=== PATIENT | female | born 1990 | race Caucasian/White ===

== ENCOUNTER 2018-11-06 13:49 | Emergency (ER) | payer MEDICAID ==
[~2018-11-06] VITALS: Ht 165.1 cm; Wt 104.3 kg
[2018-11-06 14:00] VITALS: BP 135/75
== END 2018-11-06 15:52 | disposition home or self-care (01) ==
LOC: ER 13:51
DX: R22.41 Localized swelling, mass and lump, right lower limb (principal); F32.9 Major depressive disorder, single episode, unspecified; F41.9 Anxiety disorder, unspecified; F15.20 Other stimulant dependence, uncomplicated; Z90.710 Acquired absence of both cervix and uterus; Z98.890 Other specified postprocedural states
CPT/HCPCS: 36415; 87806

== ENCOUNTER 2018-11-26 23:27 | Emergency (ER) | payer MEDICAID ==
[~2018-11-26] VITALS: Ht 165.1 cm; Wt 99.8 kg
[2018-11-27] MEDS ORDERED: CLINDAMYCIN HCL 150 MG CAPSULE PO ONE ×2 (00:14→00:30)
--- NOTE | 2018-11-27 00:37 | NUR ---
Patient discharged to home in stable condition. Written and verbal after care instructions given. Patient verbalizes understanding of instruction.
[2018-11-27 00:38] VITALS: BP 135/85
== END 2018-11-27 00:40 | disposition home or self-care (01) ==
LOC: ER 23:33
DX: L03.115 Cellulitis of right lower limb (principal); L73.9 Follicular disorder, unspecified; F32.9 Major depressive disorder, single episode, unspecified; F41.9 Anxiety disorder, unspecified; Z90.710 Acquired absence of both cervix and uterus; Z98.890 Other specified postprocedural states

== ENCOUNTER 2019-03-04 00:47 | Emergency (ER) | payer MEDICAID ==
[~2019-03-04] VITALS: Ht 165.1 cm; Wt 104.3 kg
--- NOTE | 2019-03-04 01:02 | NUR ---
BIBS TO ER BED BED 6. AAOX4. NO RESP DISTRESS NOTED. AMBULATORY. C/O WATERY DIARRHEA. PT STATES THAT SHE HAS ABOUT 12EPISODES PER DAY, EVEN WHEN SHE IS SLEEPING. PT REPORTS NAUSEA BUT NOT VOMMITING. PT REPORTS THAT SHE IS BLOATED AND BURPING ALOT. MD IS AT BEDSIDE FOR EVAL. AWAITING ORDERS
[2019-03-04 01:28] LABS: BASOPHILS % (AUTO) 0.3 % (0.0-2.0); EOSINOPHILS % (AUTO) 1.2 % (0.0-6.0); HEMATOCRIT 37 % (33-45); HEMOGLOBIN 12.2 g/dL (11.5-14.8); LYMPHOCYTES # (AUTO) 1.9 /CMM (0.8-4.8); LYMPHOCYTES % (AUTO) 29.2 % (20.0-44.0); MEAN CORPUSCULAR HGB CONC 33 g/dl (31.0-36.0); MEAN CORPUSCULAR VOLUME 79 fL (82-100); MONOCYTES # (AUTO) 0.7 /CMM (0.1-1.30); MONOCYTES % (AUTO) 10.1 % (2.0-12.0); NEUTROPHILS # (AUTO) 3.8 /CMM (1.8-8.9); NEUTROPHILS % (AUTO) 59.2 % (43.0-81.0); PLATELET COUNT (AUTO) 417 /CMM (150-450); RED BLOOD CELL COUNT(AUTO) 4.66 MIL/uL (4.0-5.2); WHITE BLOOD COUNT (AUTO) 6.4 K/uL (4.3-11.0)
[2019-03-04] MEDS ORDERED: IV NS 0.9% 1,000 ML BAG IV ONE (01:30)
[2019-03-04 01:35] LABS: CALCIUM, SERUM 8.9 mg/dL (8.5-10.1); CREATININE 0.9 mg/dL (0.6-1.3); POTASSIUM 3.3 mmol/L (3.5-5.1)
[2019-03-04 01:41] LABS: ALBUMIN 3.4 g/dL (3.4-5.0); BILIRUBIN,DIRECT 0.1 mg/dL (0.0-0.2); BILIRUBIN,TOTAL 0.7 mg/dL (0.2-1.0); TOTAL PROTEIN, SERUM 8.5 g/dL (6.4-8.2)
[2019-03-04 02:26] LABS: APPEARANCE,URINE SL CLOUDY (CLEAR); BILIRUBIN,URINE NEGATIVE (NEGATIVE); BLOOD, URINE NEGATIVE Ery/uL (NEGATIVE); COLOR,URINE YELLOW (YELLOW); KETONES,URINE TRACE (NEGATIVE); LEUKOCYTE ESTERASE ,URINE NEGATIVE (NEGATIVE); NITRITE, URINE NEGATIVE (NEGATIVE); PROTEIN,URINE TRACE mg/dl (NEGATIVE); UGLUCOSE NEGATIVE (NEGATIVE); UROBILINOGEN,URINE 0.2 EU/dL (0.2)
[2019-03-04 02:37] LABS: BACTERIA,URINE Moderate /HPF (None Seen); CALCIUM OXALATE CRYSTALS,UR Many /HPF (None Seen); MUCUS,URINE Moderate /LPF (None Seen); RBC,URINE 0-2 /HPF (0-2); SQUAMOUS EPITHELIAL CELL,UR Many /HPF (None Seen); WBC,URINE 0-2 /HPF (0-3)
[2019-03-04] MEDS ORDERED: POTASSIUM CHLORIDE 20 MEQ TAB.PRT.SR PO ONE ×2 (03:30→03:35)
--- NOTE | 2019-03-04 03:45 | NUR ---
Patient discharged to home in stable condition. Written and verbal after care instructions given. Patient verbalizes understanding of instruction.IV removed. Catheter intact and site benign. Pressure and 4x4 applied to site. No bleeding noted. Pt ambulatory with a steady gait
[2019-03-04 03:46] VITALS: BP 131/74
== END 2019-03-04 03:46 | disposition home or self-care (01) ==
LOC: ER 00:48
DX: R19.7 Diarrhea, unspecified (principal); R10.84 Generalized abdominal pain; R11.0 Nausea; F32.9 Major depressive disorder, single episode, unspecified; F41.9 Anxiety disorder, unspecified; F15.10 Other stimulant abuse, uncomplicated; Z90.710 Acquired absence of both cervix and uterus; Z98.890 Other specified postprocedural states; Z60.2 Problems related to living alone
CPT/HCPCS: 36415; 80048; 80076; 81001; 83690; 84703; 85025; 87086; 96360; 99283; J7030; 81000-TC

== ENCOUNTER 2019-04-15 18:09 | Emergency (ER) | payer MEDICAID ==
[~2019-04-15] VITALS: Ht 165.1 cm; Wt 104.3 kg
[2019-04-15 18:17] VITALS: BP 119/82
--- NOTE | 2019-04-15 19:17 | NUR ---
PT REFUSED HIV TEST SHE HAD TO GO HOME. PT IS ON A CURFEW. PT DID NOT WANT HER LAST VSS TAKEN. Patient discharged to home in stable condition. Written and verbal after care instructions given. Patient verbalizes understanding of instruction AND RX. PT AMBULATED OUT WITH A STEADY GAIT.
== END 2019-04-15 19:17 | disposition home or self-care (01) ==
LOC: ER 18:11
DX: S30.860A Insect bite (nonvenomous) of lower back and pelvis, initial encounter (principal); F32.9 Major depressive disorder, single episode, unspecified; F41.9 Anxiety disorder, unspecified; Z90.710 Acquired absence of both cervix and uterus; Z98.890 Other specified postprocedural states; Z60.2 Problems related to living alone; W57.XXXA Bitten or stung by nonvenomous insect and other nonvenomous arthropods, initial encounter; Y93.89 Activity, other specified; Y92.89 Other specified places as the place of occurrence of the external cause; Y99.8 Other external cause status
CPT/HCPCS: 87491; 87591

== ENCOUNTER 2019-05-24 08:10 | Emergency (ER) | payer MEDICAID ==
[~2019-05-24] VITALS: Ht 165.1 cm; Wt 98.4 kg
[2019-05-24 08:25] VITALS: BP 142/83
--- NOTE | 2019-05-24 09:06 | NUR ---
Patient discharged to home in stable condition. Written and verbal after care instructions given. Patient verbalizes understanding of instruction.
== END 2019-05-24 09:08 | disposition home or self-care (01) ==
LOC: ER 08:17
DX: B35.6 Tinea cruris (principal); Z90.710 Acquired absence of both cervix and uterus; Z98.890 Other specified postprocedural states; Z60.2 Problems related to living alone

== ENCOUNTER 2019-07-05 07:28 | Emergency (ER) | payer MEDICAID ==
[~2019-07-05] VITALS: Ht 170.2 cm; Wt 113.4 kg
--- NOTE | 2019-07-05 07:38 | NUR ---
CAME IN TO ER BECAUSE HER PARTNER TESTED POSITIVE FOR SYPHILIS. TO ER BED 16, HOOKED TO MONITOR, CHANGED TO HOSP GOWN, WARM BLANKET PROVIDED, AWAITING MD PATEL
--- NOTE | 2019-07-05 07:38 | NUR ---
DR LOYD AT BEDSIDE
[2019-07-05] MEDS ORDERED: PENICILLIN G BENZATHINE 2.4 MMU/4 ML ML IM ONE ×2 (08:00→08:04)
[2019-07-05 08:50] VITALS: BP 126/79
--- NOTE | 2019-07-05 09:10 | NUR ---
PATIENT WALKED OUT OF FACILITY. AWARE
== END 2019-07-05 09:26 | disposition home or self-care (01) ==
LOC: ER 07:33
DX: Z20.2 Contact with and (suspected) exposure to infections with a predominantly sexual mode of transmission (principal); F32.9 Major depressive disorder, single episode, unspecified; F41.9 Anxiety disorder, unspecified; Z98.890 Other specified postprocedural states; Z60.2 Problems related to living alone
CPT/HCPCS: 96372; 99283; A6403; J0558

== ENCOUNTER 2019-07-18 21:04 | Emergency (ER) | payer MEDICAID ==
[~2019-07-18] VITALS: Ht 165.1 cm; Wt 113.4 kg
[2019-07-18 21:04] VITALS: BP 159/99
--- NOTE | 2019-07-18 21:11 | NUR ---
PT CAME TO THE ED C/O SORE THROAT AND COBGESTION X 1 DAY. -COUGH -FEVER. PT AAOX4, RR EVEN AND UNLABORED ON W NAD NOTED. PT CONNECTED TO THE MONITOR AND POX.
--- NOTE | 2019-07-18 21:12 | NUR ---
AWAITING FOR MD PATEL
--- NOTE | 2019-07-18 22:33 | NUR ---
Patient discharged to home in stable condition. Written and verbal after care instructions given. Patient verbalizes understanding of instruction.
== END 2019-07-18 22:33 | disposition home or self-care (01) ==
LOC: ER 21:04
DX: J02.9 Acute pharyngitis, unspecified (principal); J06.9 Acute upper respiratory infection, unspecified; Z90.710 Acquired absence of both cervix and uterus; Z60.2 Problems related to living alone

== ENCOUNTER 2019-10-09 05:55 | Emergency (ER) | payer MEDICAID ==
[~2019-10-09] VITALS: Ht 165.1 cm; Wt 113.4 kg
--- NOTE | 2019-10-09 06:00 | NUR ---
CALLED FOR TRIAGE. NO ANSWER
[2019-10-09 06:30] VITALS: BP 138/95
[2019-10-09] MEDS ORDERED: CEFTRIAXONE 500 MG VIAL ONE (06:56)
[2019-10-09] MEDS ORDERED: LIDOCAINE /MPF 1% VIAL 5 ML VIAL ONE (06:56)
[2019-10-09] MEDS ORDERED: AZITHROMYCIN 250 MG TABLET ONE (06:56)
[2019-10-09] MEDS ORDERED: AZITHROMYCIN 250 MG TABLET PO ONE (07:00)
[2019-10-09] MEDS ORDERED: CEFTRIAXONE 500 MG VIAL IM ONE (07:00)
--- NOTE | 2019-10-09 07:04 | NUR ---
Patient discharged to home in stable condition. Written and verbal after care instructions given. Patient verbalizes understanding of instruction.
== END 2019-10-09 07:05 | disposition home or self-care (01) ==
LOC: ER 05:59
DX: A64 Unspecified sexually transmitted disease (principal); Z90.710 Acquired absence of both cervix and uterus; Z98.890 Other specified postprocedural states; Z60.2 Problems related to living alone
CPT/HCPCS: 96372; 99283; J0696; J3490

== ENCOUNTER 2019-10-13 17:57 | Emergency (ER) | payer MEDICAID, OTHER ==
[~2019-10-13] VITALS: Ht 165.1 cm; Wt 99.8 kg
[2019-10-13 18:03] VITALS: BP 131/59
[2019-10-13] MEDS ORDERED: PENICILLIN G BENZATHINE 2.4 MMU/4 ML ML IM ONE ×2 (18:11→18:30)
--- NOTE | 2019-10-13 18:24 | NUR ---
Patient discharged to home in stable condition. Written and verbal after care instructions given. Patient verbalizes understanding of instruction.
== END 2019-10-13 18:25 | disposition home or self-care (01) ==
LOC: ER 17:58
DX: A53.9 Syphilis, unspecified (principal); Z98.890 Other specified postprocedural states; Z60.2 Problems related to living alone
CPT/HCPCS: 96372; 99283; J0558

== ENCOUNTER 2019-10-19 05:21 | Emergency (ER) | payer OTHER ==
[~2019-10-19] VITALS: Ht 165.1 cm; Wt 113.4 kg
[2019-10-19 05:21] VITALS: BP 141/99
== END 2019-10-19 06:46 | disposition home or self-care (01) ==
LOC: ER 05:25
DX: A53.0 Latent syphilis, unspecified as early or late (principal); Z98.890 Other specified postprocedural states; Z60.2 Problems related to living alone

== ENCOUNTER 2019-12-10 03:12 | Emergency (ER) | payer MEDICAID, OTHER ==
[~2019-12-10] VITALS: Ht 165.1 cm; Wt 113.4 kg
[2019-12-10 03:26] VITALS: BP 146/86
--- NOTE | 2019-12-10 03:43 | NUR ---
PT NOT IN ROOM. PT ELOPED.
== END 2019-12-10 04:51 | disposition home or self-care (01) ==
LOC: ER 03:13
DX: Z53.21 Procedure and treatment not carried out due to patient leaving prior to being seen by health care provider (principal); L73.9 Follicular disorder, unspecified; Z98.890 Other specified postprocedural states

== ENCOUNTER 2020-02-14 03:26 | Emergency (ER) | payer MEDICAID ==
[~2020-02-14] VITALS: Ht 165.1 cm; Wt 113.4 kg
[2020-02-14 03:35] VITALS: BP 133/88
== END 2020-02-14 03:55 | disposition home or self-care (01) ==
LOC: ER 03:26
DX: L73.8 Other specified follicular disorders (principal); Z98.890 Other specified postprocedural states; Z60.2 Problems related to living alone

== ENCOUNTER 2020-05-19 10:40 | Emergency (ER) | payer MEDICAID ==
[~2020-05-19] VITALS: Ht 165.1 cm; Wt 113.4 kg
[2020-05-19 10:47] VITALS: BP 150/122
[2020-05-19] MEDS ORDERED: LOPERAMIDE HCL (2 MG CAP) 2 MG CAPSULE ONE (10:56)
[2020-05-19] MEDS ORDERED: LOPERAMIDE HCL (2 MG CAP) 2 MG CAPSULE PO ONE (11:00)
[2020-05-19] MEDS ORDERED: ONDANSETRON 4 MG TAB.RAPDIS SL ONE (11:00)
[2020-05-19] MEDS ORDERED: ONDANSETRON 4 MG TAB.RAPDIS ONE (11:02)
[2020-05-19] MEDS ORDERED: LOPE1LIQ56 PO (11:03)
[2020-05-19] MEDS ORDERED: ONDA4TAB5 PO (11:03)
== END 2020-05-19 11:20 | disposition home or self-care (01) ==
LOC: ER 10:41
DX: K52.9 Noninfective gastroenteritis and colitis, unspecified (principal); Z20.822 Contact with and (suspected) exposure to COVID-19; Z90.710 Acquired absence of both cervix and uterus; R68.83 Chills (without fever); R58 Hemorrhage, not elsewhere classified
CPT/HCPCS: 87426; 99283; C9803; Q0162

== ENCOUNTER 2020-06-23 01:51 | Emergency (ER) | payer MEDICAID, OTHER ==
[~2020-06-23] VITALS: Ht 165.1 cm; Wt 117.9 kg
[2020-06-23 01:51] VITALS: BP 173/95
[~2020-06-23 01:51] MED LIST: LOPE1LIQ56 PO; ONDA4TAB5 PO
[2020-06-23] MEDS ORDERED: DOXY100T2 PO (02:21)
[2020-06-23] MEDS ORDERED: DOXYCYCLINE HYCLATE (100 MG) 100 MG TABLET ONE (02:25)
[2020-06-23] MEDS ORDERED: DOXYCYCLINE HYCLATE (100 MG) 100 MG TABLET PO ONE (02:30)
== END 2020-06-23 02:30 | disposition home or self-care (01) ==
LOC: ER 01:53
DX: L03.113 Cellulitis of right upper limb (principal); A53.9 Syphilis, unspecified; K13.0 Diseases of lips; Z98.890 Other specified postprocedural states; Z60.2 Problems related to living alone; Z79.899 Other long term (current) drug therapy

== ENCOUNTER 2020-09-17 01:04 | Emergency (ER) | payer OTHER ==
[~2020-09-17] VITALS: Ht 165.1 cm; Wt 122.5 kg
[~2020-09-17 01:04] MED LIST changes: +DOXY100T2 PO
[2020-09-17 01:10] VITALS: BP 147/92
[2020-09-17] MEDS ORDERED: PENICILLIN G BENZATHINE 2.4 MMU/4 ML ML IM ONE ×2 (01:51→02:00)
== END 2020-09-17 01:56 | disposition home or self-care (01) ==
LOC: ER 01:06
DX: A64 Unspecified sexually transmitted disease (principal); Z90.710 Acquired absence of both cervix and uterus; Z79.899 Other long term (current) drug therapy
CPT/HCPCS: 96372; 99283; J0558

== ENCOUNTER 2020-11-28 02:42 | Emergency (ER) | payer OTHER ==
[~2020-11-28] VITALS: Ht 165.1 cm; Wt 136.1 kg
--- NOTE | 2020-11-28 03:00 | NUR ---
PATIENT BIBSELF WITH C/O "I THINK I HAVE REOCCURRING SYPHILLIS, I HAVE HAD IT FOR A YEAR". PATIENT IS A/O X 4, RR EVEN, NO SOB NOTED.
[2020-11-28 03:19] LABS: BILIRUBIN,URINE Negative (NEGATIVE); COLOR,URINE YELLOW (YELLOW); LEUKOCYTE ESTERASE ,URINE Trace (NEGATIVE); NITRITE, URINE Negative (NEGATIVE); PH,URINE 5.5 (5.0-8.0); PROTEIN,URINE Negative (NEGATIVE); UGLUCOSE Negative (NEGATIVE)
[2020-11-28] MEDS ORDERED: PENICILLIN G BENZATHINE 2.4 MMU/4 ML ML IM ONE ×2 (03:30→03:35)
[2020-11-28] MEDS ORDERED: METRONIDAZOLE 500 MG TABLET PO ONE (03:30)
[2020-11-28] MEDS ORDERED: CEFTRIAXONE 500 MG VIAL IM ONE (03:30)
[2020-11-28] MEDS ORDERED: AZITHROMYCIN 250 MG TABLET PO ONE (03:30)
[2020-11-28] MEDS ORDERED: METRONIDAZOLE 500 MG TABLET ONE (03:34)
[2020-11-28] MEDS ORDERED: AZITHROMYCIN 250 MG TABLET ONE (03:34)
[2020-11-28] MEDS ORDERED: CEFTRIAXONE 500 MG VIAL ONE ×2 (03:34→03:39)
[2020-11-28 03:35] LABS: BACTERIA,URINE None seen /HPF (None Seen); SQUAMOUS EPITHELIAL CELL,UR Moderate /HPF (None Seen); WBC,URINE 0-2 /HPF (0-3)
[2020-11-28] MEDS ORDERED: LIDOCAINE /MPF 1% VIAL 5 ML VIAL ONE ×2 (03:36→03:40)
--- NOTE | 2020-11-28 03:56 | NUR ---
Patient discharged to home in stable condition. Written and verbal after care instructions given. Patient verbalizes understanding of instruction.
[2020-11-28 04:14] VITALS: BP 130/74
[2020-11-29] MEDS ORDERED: PROPOFOL 100 ML ONE (08:19)
== END 2020-11-28 04:01 | disposition home or self-care (01) ==
LOC: ER 02:46
DX: Z20.2 Contact with and (suspected) exposure to infections with a predominantly sexual mode of transmission (principal); F10.10 Alcohol abuse, uncomplicated; Y90.9 Presence of alcohol in blood, level not specified; Z90.710 Acquired absence of both cervix and uterus; Z98.890 Other specified postprocedural states; Z79.899 Other long term (current) drug therapy
CPT/HCPCS: 81001; 96372 ×2; 99284; J0558; J0696 ×2; J3490 ×2; 36415; 86592

== ENCOUNTER 2021-01-06 01:11 | Emergency (ER) | payer OTHER ==
[~2021-01-06] VITALS: Ht 165.1 cm; Wt 113.4 kg
[2021-01-06 01:20] VITALS: BP 132/87
--- NOTE | 2021-01-06 01:48 | NUR ---
PT DID NOT WANT TO WAIT FOR DISCHARGE PAPERWORK.
== END 2021-01-06 01:48 | disposition home or self-care (01) ==
LOC: ER 01:12
DX: A53.9 Syphilis, unspecified (principal); E66.01 Morbid (severe) obesity due to excess calories; Z68.41 Body mass index [BMI] 40.0-44.9, adult; Z90.710 Acquired absence of both cervix and uterus; Z79.899 Other long term (current) drug therapy

== ENCOUNTER 2021-03-17 21:23 | Inpatient (IN) | payer OTHER ==
[~2021-03-17] VITALS: Ht 165.1 cm; Wt 127.0 kg
[2021-03-17] MEDS ORDERED: KETOROLAC TROMETHAMINE 15 MG/ML VIAL ONE (21:51)
--- NOTE | 2021-03-17 21:55 | NUR ---
URINE COLLECTED AND SENT TO LAB
[2021-03-17] MEDS ORDERED: IV NS 0.9% 1,000 ML BAG IV ONE (22:00)
[2021-03-17] MEDS ORDERED: KETOROLAC TROMETHAMINE INJ 30 MG/ML VIAL IV ONE (22:00)
[2021-03-17 22:24] LABS: BILIRUBIN,URINE SMALL (NEGATIVE); COLOR,URINE YELLOW (YELLOW); LEUKOCYTE ESTERASE ,URINE Moderate (NEGATIVE); NITRITE, URINE Positive (NEGATIVE); PH,URINE 5.5 (5.0-8.0); PROTEIN,URINE 100 mg/dl (NEGATIVE); UGLUCOSE Negative (NEGATIVE)
[2021-03-17 22:31] LABS: BACTERIA,URINE 3+ /HPF (None Seen); SQUAMOUS EPITHELIAL CELL,UR Few /HPF (None Seen); WBC,URINE 21-50 /HPF (0-3)
--- NOTE | 2021-03-17 22:41 | NUR ---
COVID ANTIGEN AND PCR SWAB COLLECTED & SENT TO LAB
[2021-03-17] MEDS ORDERED: CEFTRIAXONE 1 G in IV D5W 50 ML IV ONE (23:00)
[2021-03-17] MEDS ORDERED: CEFTRIAXONE 1GM BAG (ER ONLY) 50 ML IV ONE (23:05)
--- NOTE | 2021-03-17 23:08 | NUR ---
L FOOT #20G S/L; PATENT AND INTACT. BLOOD COLLECTED AND SENT TO LAB
[2021-03-17 23:09] LABS: BASOPHILS % (AUTO) 0.2 % (0.0-2.0); HEMATOCRIT 40 % (33-45); HEMOGLOBIN 12.7 g/dL (11.5-14.8); LYMPHOCYTES # (AUTO) 1.4 K/uL (0.8-4.8); LYMPHOCYTES % (AUTO) 5.7 % (20.0-44.0); MEAN CORPUSCULAR HGB CONC 32 g/dl (31.0-36.0); MEAN CORPUSCULAR VOLUME 84 fL (82-100); MONOCYTES # (AUTO) 2.1 K/uL (0.1-1.30); MONOCYTES % (AUTO) 8.6 % (2.0-12.0); NEUTROPHILS # (AUTO) 21.3 K/uL (1.8-8.9); NEUTROPHILS % (AUTO) 85.5 % (43.0-81.0); PLATELET COUNT (AUTO) 372 K/uL (150-450); RED BLOOD CELL COUNT(AUTO) 4.74 MIL/uL (4.0-5.2); WHITE BLOOD COUNT (AUTO) 24.9 K/uL (4.3-11.0)
[2021-03-17 23:19] LABS: CALCIUM, SERUM 8.5 mg/dL (8.5-10.1); CARBON DIOXIDE 23 mmol/L (21-32); CHLORIDE 96 mmol/L (98-107); CREATININE 0.9 mg/dL (0.6-1.3); GLUCOSE 141 mg/dL (74-106); POTASSIUM 3.3 mmol/L (3.5-5.1); SODIUM SERUM 133 mmol/L (136-145); UREA NITROGEN, BLOOD 7 mg/dL (7-18)
--- NOTE | 2021-03-17 23:22 | NUR ---
CHLAMYDIA / WET M[place] SWAB COLLECTED AND SENT TO LAB
[2021-03-17 23:25] LABS: ALANINE AMINOTRANSFERASE 22 U/L (12-78); ALBUMIN 3.2 g/dL (3.4-5.0); ALKALINE PHOSPHATASE 153 U/L (46-116); ASPARTATE AMINOTRANSFERASE 14 U/L (15-37); BILIRUBIN,DIRECT 0.2 mg/dL (0.0-0.2); BILIRUBIN,TOTAL 1.1 mg/dL (0.2-1.0); TOTAL PROTEIN, SERUM 8.3 g/dL (6.4-8.2)
--- NOTE | 2021-03-17 23:28 | NUR ---
LACTIC 2.9
[2021-03-18] MEDS ORDERED: IV LR 1000 ML 1,000 ML IV ONE
[2021-03-18] MEDS ORDERED: IV NS 0.9% 1,000 ML IV ONE (02:30)
[2021-03-18] MEDS ORDERED: ONDANSETRON HCL/PF 4 MG/2 ML VIAL IVP PRN (02:30)
--- NOTE | 2021-03-18 02:54 | NUR ---
REPORT GIVEN TO HERB GALLEGOS
[2021-03-18] MEDS ORDERED: VANCOMYCIN 2 GM in IV D5W 500 ML IV ONE (03:00)
--- NOTE | 2021-03-18 03:04 | NUR ---
PATIENT TRANSFERRED UNDER ACLS
[2021-03-18] MEDS ORDERED: VANCOMYCIN 1 GM VIAL ONE (03:29)
--- NOTE | 2021-03-18 03:30 | NUR ---
RN NOTES RECEIVED PT FROM ER, A/O X4, ABLE TO VERBALIZE NEEDS. PT ON ROOM AIR, O2 SAT IS 99%, NO SOB NOTED, NO DISTRESS NOTED. PT BP IS 83/46, IV NS 75ML/HR ORDERED STARTED, PT IS TOLERATING WELL. PT IS COOL TO TOUCH, TEMP IS 99.1. IV ACCESS ON L FOOT G#20. IV ANTIBIOTICS STARTED, WILL CONTINUE TO MONITOR PT FOR ANY CHANGES.
[2021-03-18 04:00] VITALS: BP 83/46
[2021-03-18] MEDS: PIPERACILLIN /TAZOBACTAM 3.375 G in IV D5W 50 ML IV SCH ×4 (06:13→17:00)
[2021-03-18] MEDS ORDERED: PIPERACILLIN /TAZOBACTAM 3.375 G VIAL IV ONE (06:16)
--- NOTE | 2021-03-18 07:15 | NUR ---
RN NOTES ENDORSED PT TO DAY SHIFT NURSE. PT REMAINS IN BED, A/O X4, ABLE TO VERBALIZE NEEDS. ON ROOM AIR, O2 SAT 98% AT THIS TIME. IV ANTIBIOTICS INFUSED. ALL DUE MEDS GIVEN. IV ACCESS ON L FOOT G#20 REMAINS INTACT, NO COMPLICATIONS NOTED. NO SIGNIFICANT FINDINGS UPON ALL NURSING ASSESSMENTS. ALL SAFETY MEASURES IMPLEMENTED. WILL ENDORSE TO DAY SHIFT NURSE FOR RYLEY.
--- NOTE | 2021-03-18 07:45 | NUR ---
RN OPENING NOTE PT N BED A/O X4, ABLE TO VERBALIZE NEEDS. ON ROOM AIR, O2 SAT 98% AT THIS TIME. NO COMPLAINTS OF SOB OR PAIN. IV ACCESS ON L FOOT G#20 REMAINS INTACT,. ALL SAFETY MEASURES IMPLEMENTED.
[2021-03-18] MEDS: PANTOPRAZOLE 40 MG VIAL IV SCH (09:18)
[2021-03-18 10:43] VITALS: BP 124/71
[2021-03-18] MEDS ORDERED: VANCOMYCIN 1.25 GM in IV D5W 250 ML IV SCH (13:00)
[2021-03-18] MEDS: ACETAMINOPHEN 325 MG TABLET PO PRN (15:37)
[2021-03-18 16:00] VITALS: BP 110/52
--- NOTE | 2021-03-18 18:51 | NUR ---
RN CLOSING NOTE PATIENT IS RESTING IN BED, A/O X 4 RESPONSE TO NAME. NO COMPLAINTS OF SOB. ON RA WITH O2 SAT ABOVE 95% THROUGH OUT SHIFT. ALL MEDICATIONS GIVEN ORDERED. PATIENT NEEDS MED ON SHIFT. SAFETY PROTOCOL IN PLACE, BED IN LOWEST POSITION AND LOCKED, CALL LIGHT WITHIN REACH. WILL ENDORSE TO NIGHT NURSE FOR RYLEY
--- NOTE | 2021-03-18 19:43 | NUR ---
RN OPENING NOTES RECEIVED PATIENT IN BED BUT ALERT, ORIENTED X4 AND VERBALLY RESPONSIVE. ON ROOM AIR. NO SOB, BREATHING EVEN AND UNLABORED. ABLE TO VERBALIZE HER NEEDS. IV ACCESS ON LT FOOT G#20 INTACT AND PATENT. NO C/O PAIN OR DISCOMFORT. NO ACUTE DISTRESS. ALL SAFETY MEASURE IN PLACE. BED IN LOW POSITION AND LOCKED. BOTH SIDE RAILS UP. ABLE TO USE BEDSIDE COMMODE WITH ASSIST. WILL CONTINUE TO MONITOR PT FOR ANY CHANGES.
[2021-03-18 20:00] VITALS: BP 99/46
[2021-03-19] MEDS: PIPERACILLIN /TAZOBACTAM 3.375 G in IV D5W 50 ML IV SCH ×4 (00:10→17:37)
[2021-03-19 00:17] LABS: BASOPHILS % (AUTO) 0.1 % (0.0-2.0); EOSINOPHILS % (AUTO) 0.1 % (0.0-6.0); HEMATOCRIT 32 % (33-45); HEMOGLOBIN 10.5 g/dL (11.5-14.8); LYMPHOCYTES # (AUTO) 1.5 K/uL (0.8-4.8); LYMPHOCYTES % (AUTO) 9.4 % (20.0-44.0); MEAN CORPUSCULAR HGB CONC 33 g/dl (31.0-36.0); MEAN CORPUSCULAR VOLUME 83 fL (82-100); MONOCYTES # (AUTO) 1.6 K/uL (0.1-1.30); MONOCYTES % (AUTO) 10.1 % (2.0-12.0); NEUTROPHILS # (AUTO) 13.1 K/uL (1.8-8.9); NEUTROPHILS % (AUTO) 80.3 % (43.0-81.0); PLATELET COUNT (AUTO) 306 K/uL (150-450); RED BLOOD CELL COUNT(AUTO) 3.87 MIL/uL (4.0-5.2); WHITE BLOOD COUNT (AUTO) 16.3 K/uL (4.3-11.0)
--- NOTE | 2021-03-19 00:39 | NUR ---
RN NOTES: MIDLINE INSERTED BY MIDLINE NURSE AND PT TOLERATED WELL. SCANT AMOUNT OF BLEEDING. WILL CONTINUE TO MONITOR
[2021-03-19 00:57] LABS: ALBUMIN 2.5 g/dL (3.4-5.0); BILIRUBIN,TOTAL 0.8 mg/dL (0.2-1.0); CREATININE 0.9 mg/dL (0.6-1.3); PHOSPHORUS 1.7 mg/dL (2.5-4.9); POTASSIUM 3.3 mmol/L (3.5-5.1); TOTAL PROTEIN, SERUM 7.1 g/dL (6.4-8.2)
[2021-03-19 00:59] LABS: THYROID STIMULATING HORMONE 0.404 uIU/mL (0.358-3.74)
[2021-03-19 04:00] VITALS: BP 101/82
--- NOTE | 2021-03-19 06:50 | NUR ---
RN CLOSING NOTES PATIENT IN BED SLEEPING BUT EASILY AROUSABLE ALERT, ORIENTED X4 AND VERBALLY RESPONSIVE. ON ROOM AIR, O2 SAT 99%. NO SOB, BREATHING EVEN AND UNLABORED. ABLE TO VERBALIZE HER NEEDS. IV ACCESS ON LT FOOT#20G AND MIDLINE ON ROCKY #18G INTACT AND PATENT. NO S/S OF INFILTRATIONS. ALL DUE MEDS GIVEN PER ORDER. NO C/O PAIN OR DISCOMFORT. NO ACUTE DISTRESS. ALL SAFETY MEASURE IN PLACE. BED IN LOW POSITION AND LOCKED. BOTH SIDE RAILS UP. ABLE TO USE BEDSIDE COMMODE WITH ASSIST. WILL ENDORSE TO MORNING SHIFT NURSE.
--- NOTE | 2021-03-19 07:50 | NUR ---
RN OPENING NOTE PATIENT RECEIVED IN BED, RESTING. PATIENT ON ROOM AIR WITH NO SIGNS OF LABORED BREATHING AT THIS TIME. RIGHT UA MIDLINE IN PLACE. BED LOCKED AND IN LOWEST POSITION, CALL LIGHT WITHIN REACH, 3 SIDE RAILS UP. NO SIGNS OF DISTRESS NOTED AT THIS TIME. WILL CONTINUE TO MONITOR.
[2021-03-19 08:00] VITALS: BP 101/54
[2021-03-19] MEDS: PANTOPRAZOLE 40 MG VIAL IV SCH (08:48)
[2021-03-19] MEDS ORDERED: POTASSIUM CHLORIDE 20 MEQ TAB.PRT.SR PO SCH (11:00)
[2021-03-19 12:13] LABS: CALCIUM, SERUM 8.8 mg/dL (8.5-10.1); CREATININE 0.8 mg/dL (0.6-1.3); POTASSIUM 3.2 mmol/L (3.5-5.1)
[2021-03-19] MEDS: ACETAMINOPHEN 325 MG TABLET PO PRN (15:02)
[2021-03-19] MEDS ORDERED: K PHOS NEUTRAL 250 MG TABLET PO ONE (15:30)
[2021-03-19 16:00] VITALS: BP 113/75
--- NOTE | 2021-03-19 18:58 | NUR ---
RN CLOSING NOTE PATIENT REMAINS IN BED, AWAKE, A&OX4. PATIENT ON ROOM AIR WITH NO SIGNS OF LABORED BREATHING AT THIS TIME. RIGHT UA MIDLINE IN PLACE. BED LOCKED AND IN LOWEST POSITION, CALL LIGHT WITHIN REACH, 3 SIDE RAILS UP. NO SIGNS OF DISTRESS NOTED AT THIS TIME. ALL NEEDS ATTENDED DURING SHIFT. WILL ENDORSE TO FRUIT CULLER NURSE.
--- NOTE | 2021-03-19 19:00 | NUR ---
RN NOTE RECEIVED PATIENT IN BED RESTING ALERT ORIENTED X4 VERBALLY RESPONSIVE ON ROOM AIR O2:96% ON MED SURG MONITORING,AMBULATORY WITH ASSIST,IV SITE IS ON RIGHT UPPER ARM MIDLINE INTACT PATENT,CONTIENT BOWEL/BLADDER,IMPLEMENT SAFETY MEASURE BED IN LOW POSITON AND LOCKED,CALL LIGHT WITHIN REACH CONTINUE TO MONITOR.
[2021-03-19] MEDS: MUPIROCIN OINT 2% 22 GM TUBE NS SCH (20:32)
[2021-03-20] VITALS: BP 94/54
[2021-03-20] MEDS: PIPERACILLIN /TAZOBACTAM 3.375 G in IV D5W 50 ML IV SCH ×2 (00:19→05:21)
--- NOTE | 2021-03-20 04:52 | NUR ---
RN NOTE TYLENOL 650 MG PRN GIVEN FOR HEADACHE 06/04 CONTINUE TO MONITOR
[2021-03-20] MEDS: ACETAMINOPHEN 325 MG TABLET PO PRN (04:53)
--- NOTE | 2021-03-20 05:00 | NUR ---
RN NOTE PATIENT SLEEPING COMFORTABLE NO PAIN CONTINUE TO MONITOR.
--- NOTE | 2021-03-20 06:45 | NUR ---
0645 PATIENT STATED SHE DID NOT RECEIVE FLU VACCINE THIS SEASON. REFUSED VACCINE WHEN OFFERED.
--- NOTE | 2021-03-20 06:47 | NUR ---
RN NOTE PATIENT REMAINS ON ALERT ORIENTED X4 VERBALLY RESPONSIVE ON ROOM AIR O2:97% NO SOB NOT ACUTE DISTRESS NOTED, AMBUALTORY WITH ASSIST,ALL DUE MEDS GIVEN MD ORDERED,KEPT CALL LIGHT WITHIN REACH ALL NEEDS MET ENDORSE NEXT COMING SHIFT FOR CONTINUATION OF CARE.
--- NOTE | 2021-03-20 07:25 | NUR ---
RN NOTE REPORT REC'D FROM HERB CABRREA AT BEDSIDE. PT ASLEEP BUT EASILY AROUSABLE. IN NO ACUTE DISTRESS. NO SOB. DENIES PAIN. ON RA. ROCKY MIDLINE PATENT DRESSING INTACT. SAFETY MEASURES OBSERVED. WILL CONTINUE TO MONITOR.
[2021-03-20] MEDS: PANTOPRAZOLE 40 MG VIAL IV SCH (09:25)
[2021-03-20] MEDS: MUPIROCIN OINT 2% 22 GM TUBE NS SCH ×2 (09:25→20:38)
[2021-03-20 10:44] VITALS: BP 103/72
[2021-03-20 16:00] VITALS: BP 103/72
--- NOTE | 2021-03-20 16:04 | NUR ---
RN NOTE LAB CAME FOR BLOOD DRAW. TRIED TO OBTAIN BLOOD SAMPLE TWICE BUT UNABLE. PER TECH HE'LL SOMEONE TO TRY AGAIN. PT WAS HESITANT AT FIRST BUT LATER SHE AGREED TO IT.
[2021-03-20] MEDS ORDERED: CEPHALEXIN MONOHYDRATE 500 MG CAPSULE PO SCH (18:00)
[2021-03-20] MEDS: LEVOFLOXACIN (250MG) 250 MG TABLET PO SCH (18:51)
--- NOTE | 2021-03-20 19:26 | NUR ---
RN OPENING NOTES RECEIVED PT IN BED, ASLEEP, AWAKENS TO VERBAL STIMULI. AOx4, ABLE TO MAKE NEEDS KNOWN. ON RA AND TOLERATING WELL. NO S/SX OF RESPIRATORY DISTRESS NOTED. IV ACCESS IN ROCKY MIDLINE. IV ACCESS IS INTACT, PATENT, AND FLUSHING WELL. SAFETY PRECAUTIONS IN PLACE: BED IN LOWEST, LOCKED POSITION, SIDERAILS UPx2, AND BRAKES ON. TABLE AND CALL LIGHT WITHIN REACH. WILL CONTINUE TO MONITOR.
--- NOTE | 2021-03-20 19:27 | NUR ---
RN NOTE PT ASLEEP. NO SOB. BREATHING UNLABORED. DUE MEDS WERE GIVEN SCHEDULED. SAFETY MEASURES IN PLACE. CALL LIGHT PLACED WITHIN REACH. PT LEFT UNDISTURBED. RYLEY ENDORSED TO RICKY ESTEVEZ.
[2021-03-21] VITALS: BP 105/75
--- NOTE | 2021-03-21 06:46 | NUR ---
RN CLOSING NOTES PT IN BED, ASLEEP, AWAKENS TO VERBAL STIMULI. AOx4, ABLE TO MAKE NEEDS KNOWN. ON RA AND TOLERATING WELL. NO SOB NOTED. NO S/SX OF RESPIRATORY DISTRESS NOTED. IV ACCESS IN ROCKY MIDLINE. IV ACCESS IS INTACT, PATENT, AND FLUSHING WELL. ALL NEEDS MET. PT KEPT CLEAN AND DRY. SAFETY PRECAUTIONS IN PLACE: BED IN LOWEST, LOCKED POSITION, SIDERAILS UPx2, AND BRAKES ON. TABLE AND CALL LIGHT WITHIN REACH. WILL ENDORSE TO ONCOMING SHIFT FOR RYLEY.
--- NOTE | 2021-03-21 07:51 | NUR ---
per [facility] covid negative
[2021-03-21 08:00] VITALS: BP 108/58
[2021-03-21] MEDS: PANTOPRAZOLE 40 MG TABLET.DR PO SCH (08:08)
[2021-03-21] MEDS: MUPIROCIN OINT 2% 22 GM TUBE NS SCH ×2 (08:11→21:30)
--- NOTE | 2021-03-21 09:42 | NUR ---
RN NOTE RECEIVED PT AWAKE IN BED, ALERT AND VERBALLY RESPONSIVE. CONTINUES IN ROOM AIR, NOT IN RESPIRATORY DISTRESS. NO COMPLAINTS OF PAIN AND DISCOMOFRT. ROCKY MIDLINE IN PLACE AND PATENT. WILL CONTINUE TO MONITOR. ALL SAFETY MEASURES FOLLOWED.
--- NOTE | 2021-03-21 15:14 | NUR ---
PATIENT REFUSED TO BE STICK,UNABLE TO GET BLOOD FROM MIDLINE.DR. NOLAN NOTIFIED.
[2021-03-21 16:00] VITALS: BP 90/64
[2021-03-21] MEDS: LEVOFLOXACIN (250MG) 250 MG TABLET PO SCH (18:29)
[2021-03-21 20:00] VITALS: BP 132/72
--- NOTE | 2021-03-21 20:00 | NUR ---
MS RN NOTES RECEIVED FROM RAKAN VIA WHEELCHAIR,ALERT,ORIENTEDX4,AMBULATORY,CO COMPLAINTS THRU OUT SHIFT,SLEEP WELL ,POSSIBLE DISCHARGE TODAY.NO DISTRESS.
[2021-03-22 07:49] LABS: BASOPHILS # (AUTO) 0.1 K/uL (0.0-0.2); BASOPHILS % (AUTO) 1.1 % (0.0-2.0); HEMATOCRIT 35 % (33-45); LYMPHOCYTES % (AUTO) 25.5 % (20.0-44.0); MEAN CORPUSCULAR HGB CONC 34 g/dl (31.0-36.0); MEAN CORPUSCULAR VOLUME 81 fL (82-100); MONOCYTES # (AUTO) 0.8 K/uL (0.1-1.30); MONOCYTES % (AUTO) 7.2 % (2.0-12.0); NEUTROPHILS # (AUTO) 7.7 K/uL (1.8-8.9); NEUTROPHILS % (AUTO) 65.2 % (43.0-81.0); PLATELET COUNT (AUTO) 477 K/uL (150-450); RED BLOOD CELL COUNT(AUTO) 4.35 MIL/uL (4.0-5.2); WHITE BLOOD COUNT (AUTO) 11.8 K/uL (4.3-11.0)
[2021-03-22] MEDS: PANTOPRAZOLE 40 MG TABLET.DR PO SCH (07:51)
[2021-03-22 08:00] VITALS: BP 129/51
--- NOTE | 2021-03-22 08:03 | NUR ---
MS RN OPENING NOTE Patient in bed, asleep. A/O x 4, able to make needs known. On room air, breathing evenly and unlabored. No SOB or s/s of distress noted. IV access on ROCKY midline #18G, intact and patent. Safety measures in place: bed in low, locked position; siderails up x 2; call light within reach. Will continue to monitor.
[2021-03-22 08:08] LABS: CALCIUM, SERUM 8.9 mg/dL (8.5-10.1); CREATININE 0.8 mg/dL (0.6-1.3); MAGNESIUM 2.4 mg/dL (1.8-2.4); PHOSPHORUS 4.1 mg/dL (2.5-4.9); POTASSIUM 4.1 mmol/L (3.5-5.1)
[2021-03-22] MEDS: MUPIROCIN OINT 2% 22 GM TUBE NS SCH (10:22)
[2021-03-22] MEDS ORDERED: LEVO250T59 PO (13:00)
--- NOTE | 2021-03-22 13:46 | NUR ---
DISCHARGE NOTE Received order for discharge. Patient is A/O x 4, able to make needs known. Stable on room air, breathing evenly and unlabored. Denies any pain or discomfort at this time. Discharge instructions given both verbally and in written form, verbalized understanding. All belongings accounted for, belonging sheet signed. IV access removed, catheter tip intact; pressure dressing applied, no signs of bleeding noted. ID band removed. Exitcare folder given to patient. Patient left in stable condition via private car with .
== END 2021-03-22 14:00 | disposition home or self-care (01) | DRG 720 ==
LOC: ER 21:27 → TELE1 03-18 02:22 → MEDSG1 03-18 03:31 → TELE 03-21 19:06 → MED 03-21 20:33
PROVIDERS: ADMIT Internal Medicine; ATTEND Internal Medicine
PROC: 05H933Z Insertion of Infusion Device into Right Brachial Vein, Percutaneous Approach (ICD-10-PCS; principal; 2021-03-18)
DX: A41.9 Sepsis, unspecified organism (principal); E87.1 Hypo-osmolality and hyponatremia; E87.6 Hypokalemia; E66.01 Morbid (severe) obesity due to excess calories; D50.9 Iron deficiency anemia, unspecified; F15.10 Other stimulant abuse, uncomplicated; N39.0 Urinary tract infection, site not specified; Z20.822 Contact with and (suspected) exposure to COVID-19; Z90.710 Acquired absence of both cervix and uterus; Z98.890 Other specified postprocedural states; Z79.899 Other long term (current) drug therapy; Z68.42 Body mass index [BMI] 45.0-49.9, adult; Z86.19 Personal history of other infectious and parasitic diseases; B96.20 Unspecified Escherichia coli [E. coli] as the cause of diseases classified elsewhere; R73.9 Hyperglycemia, unspecified
CPT/HCPCS: 36415; 71045-TC; 80048-TC; 80053-TC; 80076-TC; 81001; 83605-TC; 83735-TC; 84100-TC; 84443-TC; 84484-TC; 84703-TC; 85025-TC; 87040-TC; 87081-TC; 87086-TC; 87186-TC; 87210-TC; 87491; 87591; C9113; C9803; G0378; J0696; J1885; J2543; J3370; J7030; J7050; J7060; J7120; U0003

== ENCOUNTER 2023-02-14 04:13 | Emergency (ER) | payer OTHER ==
[~2023-02-14] VITALS: Ht 165.1 cm; Wt 136.1 kg
[~2023-02-14 04:13] MED LIST changes: -DOXY100T2 PO; +LEVO250T59 PO; -LOPE1LIQ56 PO; -ONDA4TAB5 PO
[2023-02-14] MEDS ORDERED: IBUPROFEN 400 MG TABLET ONE (04:49)
[2023-02-14] MEDS ORDERED: IBUPROFEN 400 MG TABLET PO ONE (05:00)
[2023-02-14] MEDS ORDERED: IBUP-1958 PO (05:58)
[2023-02-14 06:10] VITALS: BP 134/87; TEMP 98; O2SAT 99
== END 2023-02-14 06:13 | disposition home or self-care (01) ==
LOC: ER 04:16
DX: M25.572 Pain in left ankle and joints of left foot (principal); M25.571 Pain in right ankle and joints of right foot; Z90.710 Acquired absence of both cervix and uterus
CPT/HCPCS: 73610-TC

== ENCOUNTER 2023-12-16 15:41 | Emergency (ER) | payer OTHER ==
[~2023-12-16] VITALS: Ht 165.1 cm; Wt 122.5 kg
[~2023-12-16 15:41] MED LIST changes: +IBUP-1958 PO
[2023-12-16] MEDS ORDERED: PENICILLIN G BENZATHINE 2.4 MMU/4 ML ML IM ONE (16:32)
[2023-12-16] MEDS: PENICILLIN G BENZATHINE 2.4 MMU/4 ML ML IM ONE (16:45)
[2023-12-16] MEDS ORDERED: KETO10TA2 PO (18:59)
[2023-12-16 21:10] VITALS: BP 123/64; TEMP 98.3; O2SAT 99
== END 2023-12-16 21:11 | disposition home or self-care (01) ==
LOC: ER 15:46
DX: M25.562 Pain in left knee (principal); F14.10 Cocaine abuse, uncomplicated; Z86.59 Personal history of other mental and behavioral disorders; Z87.39 Personal history of other diseases of the musculoskeletal system and connective tissue; Z90.710 Acquired absence of both cervix and uterus; Z20.2 Contact with and (suspected) exposure to infections with a predominantly sexual mode of transmission
CPT/HCPCS: 99285; 93971; 96372; 73564; J0558

== ENCOUNTER 2024-01-31 18:09 | Emergency (ER) | payer OTHER ==
[~2024-01-31] VITALS: Ht 165.1 cm; Wt 127.0 kg
[~2024-01-31 18:09] MED LIST changes: +KETO10TA2 PO
[2024-01-31 18:26] VITALS: BP 139/87; TEMP 98.6; O2SAT 99
[2024-01-31] MEDS: PENICILLIN G BENZATHINE 2.4 MMU/4 ML ML IM ONE (19:12)
[2024-01-31] MEDS ORDERED: PENICILLIN G BENZATHINE 2.4 MMU/4 ML ML IM ONE (19:12)
== END 2024-01-31 19:19 | disposition home or self-care (01) ==
LOC: ER 18:21
DX: A53.9 Syphilis, unspecified (principal); F15.10 Other stimulant abuse, uncomplicated; Z90.710 Acquired absence of both cervix and uterus
CPT/HCPCS: 99283; 96372; J0558

== ENCOUNTER 2024-03-07 00:21 | Emergency (ER) | payer OTHER | END 2024-03-07 03:55 | disposition left against medical advice (07) | LOC: ER 00:28 | DX: Z04.1 Encounter for examination and observation following transport accident (principal); Z53.21 Procedure and treatment not carried out due to patient leaving prior to being seen by health care provider ==

== ENCOUNTER 2024-04-02 16:53 | Emergency (ER) | payer OTHER ==
[~2024-04-02] VITALS: Ht 165.1 cm; Wt 127.0 kg
[2024-04-02] MEDS ORDERED: IBUPROFEN 600 MG TABLET ONE (18:27)
[2024-04-02] MEDS: IBUPROFEN 600 MG TABLET PO ONE (18:30)
[2024-04-02 21:40] VITALS: BP 130/88; TEMP 98.3; O2SAT 97
== END 2024-04-02 21:40 | disposition home or self-care (01) ==
LOC: ER 16:58
DX: M25.512 Pain in left shoulder (principal); M79.642 Pain in left hand; Z90.710 Acquired absence of both cervix and uterus; W22.03XA Walked into furniture, initial encounter; Y93.89 Activity, other specified; Y92.89 Other specified places as the place of occurrence of the external cause; Y99.8 Other external cause status
CPT/HCPCS: 73030-TC; 73130-TC